=== PATIENT | female | born 1940 | race Caucasian/White ===

== ENCOUNTER 2018-01-26 06:58 | Outpatient (CLI) ==
[2014-08-22 16:33] VITALS: BMI 23.8
== END 2018-01-26 06:59 | disposition home or self-care (01) ==
LOC: CAR 06:58
PROVIDERS: ATTEND Internal Medicine
DX: R06.02 Shortness of breath (principal)

== ENCOUNTER 2018-01-27 06:40 | Outpatient (CLI) | payer OTHER ==
[2014-08-22 16:33] VITALS: BMI 23.8
--- NOTE | 2018-01-27 12:06 | STRESSMOD ---
Ordering Physician: DR. JANINE BARON Date of Test: 01/27/18 Medical History: SHORT OF BREATH Current Medications: LISINOPRIL, OMEPRAZOLE, BYSTOLIC, TYLENOL Resting EKG: SINUS RHYTHM, NO ACUTE CHANGES Target Heart Rate: 119/141 S-T SEGMENT STAGE MPH/GRADE HEART RATE BPM BLOOD PRESSURE mmhg RHYTHM +/- ELEVATION DEPRESSION SYMPTOMS,COMMENTS At Rest 65 150/80 SR X NONE 1 1.7/0% 2 1.7/5% 3 1.7/10% 4 2.5/12% 5 3.4/14% Immediately after 114 175/90 SR X SHORT OF BREATH Total Time: 2:06 Maximum Heart Rate Reached: 114 Reason for Termination : SHORT OF BREATH 4 MINUTES POST EXERCISE: HR 69 BPM, BP 152/80 MMHG, +/-, NO COMMENTS ____ INTERPRETATION: 98% OXYGEN SATURATION WITH EXERCISE ON ROOM AIR 1. NO EVIDENCE OF ISCHEMIA BY ST-T WAVE 2. NO ARRHYTHMIAS 3. NO CHEST PAIN OR DISCOMFORT 4. BLOOD PRESSURE RESPONSE: ADEQUATE NORMAL LEFT VENTRICULAR CONTRACTILITY--RESTING AND POST EXERCISE MTDD
== END 2018-01-27 06:41 | disposition home or self-care (01) ==
LOC: CAR 06:40
PROVIDERS: ATTEND Internal Medicine
DX: R06.02 Shortness of breath (principal)

== ENCOUNTER 2018-06-02 09:19 | Outpatient (POV) ==
[2014-08-22 16:33] VITALS: BMI 23.8
== END 2018-06-02 17:00 ==
LOC: OUTPT 09:19
PROVIDERS: ATTEND Otolaryngology
DX: H91.90 Unspecified hearing loss, unspecified ear (principal)